=== PATIENT | female | born 1975 ===

== ENCOUNTER 2020-05-31 14:25 | Emergency (ER) | payer OTHER, SELFPAY ==
[2020-05-31 14:35] VITALS: BP 142/83; PULSE 75; RESP 16; TEMP 36.7; O2SAT 100; BMI 30.2
--- NOTE | 2020-05-31 15:24 | W.ED.SKABFB ---
HPI - Skin/Abscess/Foreign Bdy General: Chief complaint: Skin/Abscess/Foreign Body Stated complaint: rash, failed outpatient therapy 2 times Time Seen by Provider: 05/31/20 14:54 Source: patient Mode of arrival: ambulatory Limitations: no limitations History of Present Illness: HPI narrative: Patient is a 45-year-old female presents to ED today for evaluation of a pruritic blistering rash. Patient tells me last week she was trimming hedges and noted there was some poison zenaida. Patient tells me she has never been allergic to poison zenaida previously so did not think much of it. She states the day after she noticed a small red lesion to the medial aspect of her left leg that had a small black spot in it. Patient tells me she assumed she was bitten by a brown recluse thus sought medical evaluation. Patient states on Sunday of last week she was placed on Bactrim. She states she took 1 dose on Sunday and 2 doses on . She states she began noticing blistering around the spot to her left leg and reports that the blistering continued to spread. She sought reevaluation on Sunday and was told that she was allergic to Bactrim and switched to Clindamycin. Patient tells me over the weekend the rash has continued to worsen. She describes the rash as pruritic and burning in nature. She does not have any lesions to her eyes, mouth, genitals. Associated symptoms: Deny chills, fever(s), nausea or vomiting Review of Systems Const: Denies: fever(s), chills, body aches, fatigue, malaise or night sweats Eyes: Denies: change in vision, blurry vision, photophobia, eye discomfort, eye discharge, eye redness or seeing flashes ENMT: Denies: odynophagia, nasal discharge or nasal congestion Card: Denies: chest pain Resp: Denies: dyspnea, productive cough or non-productive cough GI: Denies: nausea or vomiting : Denies: dysuria Musc: Denies: neck pain or back pain Skin/Breast: Reports: rash; Denies: photosensitivity Neuro: Denies: headache(s), numbness in extremities or sensory changes PFS ED PFSH: Social History (Updated 05/31/20 @ 14:41 by Darell Small RN) Smoking and tobacco status: never smoked Alcohol intake: never Substance/Drug Use: never Physical Exam Const: COMMON NORMALS: no acute distress, average body habitus, patient oriented x3, no limitations, healthy appearing, alert and well nourished HENMT: MOUTH: Normal oral and palatal mucosa present Eye: GENERAL EYE: appearance normal, both eyes and all related structures Lymph: LYMPHATIC: no lymphadenopathy noted Extremity: GENERAL: Yes normal exam except as noted Neuro: COMMON NORMALS: patient oriented x3 SENSORIUM/ORIENTATION: Yes alert Skin: OTHER: patient has a several scattered areas with erythmatous clusters of papulovesicular formations and some larger bulla to bilateral UE/LEs; she has a few areas with linear streaking that is consistent with a plant dermatitis Course Vital Signs: Vital signs: Vital Signs Temperature 98.0 F 05/31/20 14:35 Pulse Rate 65 05/31/20 16:34 Respiratory Rate 16 05/31/20 16:34 Blood Pressure 124/69 05/31/20 16:34 Pulse Oximetry 98 05/31/20 16:34 MDM - Skin/Abscess/Foreign Bdy MDM Narrative: Medical decision making narrative: Patient does not complain of any mucosal lesions. She has not had any fever, malaise/fatigue, conjunctivitis/uveitis, URI symptoms. Nickolsky sign is negative. Lesions do not occupy greater than 10% of body surface area. At this time I do not have any concern for SJS/TENS based on her recent Bactrim use (she only had a total of 3 doses). Patient's clinical presentation of rash and her history is consistent with a plant dermatitis. She will be given IM long and short acting steroid here and will be placed on 14d tapering steroid dose at home Discharge Plan Discharge Patient Disposition: Home Clinical Impression: Dermatitis due to plants Condition: Stable Prescriptions: New prednisone 10 mg tablet 10 mg PO DAILY 14 Days Qty: 50 RF: 0 Discharge Orders: Discharge Order (Routine); Ordered 05/31/20 Ordered By: Sanjana Villanueva Referrals: Amanda Stone [Primary Care Provider] - Patient Instructions: Poison Zenaida (ED), Poison [place], [place], and [place] - Adult Activity Restrictions/Additional Instructions: Please follow up with primary care in one week for worsening rash. You can return to ED or followup with primary care for any other concerns you may have. 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
[2020-05-31] MEDS: hydrocortisone 100 mg/2 mL SDV 75 MG IM (16:09)
[2020-05-31] MEDS: triamcinolone 40 mg/mL SDV IM (16:09)
[2020-05-31 16:34] VITALS: BP 124/69; PULSE 65; RESP 16; O2SAT 98
== END 2020-05-31 16:35 | disposition home or self-care (01) ==
PROVIDERS: Emergency Provider Physician Assistant; PCP Nurse Practitioner Family
DX: L25.5 Unspecified contact dermatitis due to plants, except food (principal)
CPT/HCPCS: 12345; 96372; 99281; 99283; J1720; J3301

== ENCOUNTER → 2020-06-07 08:16 | Outpatient (BNVA) | payer OTHER, SELFPAY | PROVIDERS: PCP Nurse Practitioner Family; Referring Provider Nurse Practitioner Family; Visit Provider Dermatology | DX: L25.5 Unspecified contact dermatitis due to plants, except food (principal); L30.2 Cutaneous autosensitization | CPT/HCPCS: 99203; 99204 ==

== ENCOUNTER → 2020-06-21 09:23 | Outpatient (BNVA) | payer OTHER, SELFPAY | PROVIDERS: PCP Nurse Practitioner Family; Visit Provider Dermatology | DX: L25.5 Unspecified contact dermatitis due to plants, except food (principal); L30.2 Cutaneous autosensitization | CPT/HCPCS: 99213 ==